=== PATIENT | male | born 1960 | race Caucasian/White ===

== ENCOUNTER 2021-09-04 05:51 | Observation (INO) | payer BC ==
[2021-08-31 11:55] LABS: BASOPHILS % (AUTO) 0.7 % (0.0-5.0); EOSINOPHILS % (AUTO) 4.6 % (0.0-8.0); HEMATOCRIT 37.5 % (42-54); LYMPHOCYTES % (AUTO) 21.8 % (21.0-51.0); MEAN CORPUSCULAR HEMOGLOBIN 22.1 pg (27.0-33.0); MEAN CORPUSCULAR HGB CONC 28.8 g/dL (32.0-36.0); MEAN CORPUSCULAR VOLUME 76.8 fL (79-99); MONOCYTES % (AUTO) 7.2 % (3.0-13.0); NEUTROPHILS % (AUTO) 65.4 % (40.0-77.0); PLATELET COUNT (AUTO) 323 K/uL (130-400); RED BLOOD CELL COUNT(AUTO) 4.88 MIL/uL (4.50-6.20); RED CELL DISTRIBUTION WIDTH 16.1 % (11.0-15.5); WHITE BLOOD COUNT (AUTO) 7.1 K/uL (4.8-10.8)
[2021-08-31 11:55] LABS: APPEARANCE,URINE Clear (CLEAR); BILIRUBIN,URINE Negative (NEGATIVE); COLOR,URINE Yellow (YELLOW); GLUCOSE, URINE (UA) >=1000 mg/dL (NEGATIVE); KETONES,URINE Negative (NEGATIVE); LEUKOCYTE ESTERASE ,URINE Negative (NEGATIVE); NITRATE,URINE Negative (NEGATIVE); OCCULT BLOOD,URINE Negative (NEGATIVE); PROTEIN,URINE Negative (NEGATIVE); UROBILINOGEN,URINE 0.2 mg/dL (0.2-1.0)
[2021-08-31 11:59] LABS: CREATININE 1.1 mg/dL (0.5-1.5); POTASSIUM 4.5 mmol/L (3.5-5.1)
[2021-08-31 12:04] LABS: BACTERIA,URINE None Seen /HPF (None Seen); RBC,URINE None Seen /HPF (0-1); SQUAMOUS EPITHELIAL CELL,UR None Seen /HPF (0-2); WBC,URINE 0-1 /HPF (0-1)
[2021-08-31 12:08] LABS: INR 1.05 (0.85-1.15); PROTHROMBIN TIME 11.4 SEC (9.6-11.6)
[2021-08-31 12:09] LABS: PARTIAL THROMBOPLASTIN TIME 26.2 SEC (26.3-35.5)
[2021-09-01 08:57] VITALS: BP 115/68
[~2021-09-04] VITALS: Ht 172.7 cm; Wt 84.3 kg
[~2021-09-04 05:51] MED LIST: AEC81 PO; DULO60CA64 PO; EMPA25TA PO; METF-445 PO; METO-408 PO; OLME40TA18 PO; ROSU20TA31 PO; [UNRECOGNIZED DRUG - OTHER] PO; [UNRECOGNIZED DRUG - OTHER] SQ
[2021-09-04] MEDS ORDERED: 0.9%NACL 1000ML 1,000 ML IV ONE (06:16)
[2021-09-04] MEDS ORDERED: NITROGLYCERIN 2 MG VIAL IV ONE (07:15)
[2021-09-04] MEDS ORDERED: IOHEXOL-350 50ML VIAL IV ONE (07:16)
[2021-09-04] MEDS ORDERED: LIDOCAINE HCL 400MG/20ML VIAL ONE (07:16)
[2021-09-04] MEDS ORDERED: HEPARIN 10,000 UNIT/10ML (1,000 UNIT/ML) VIAL ONE (07:33)
[2021-09-04] MEDS ORDERED: NICARDIPINE 25MG INJ IV ONE (07:33)
[2021-09-04] MEDS ORDERED: FENTANYL CITRATE PF 50 MCG/1 ML 2ML VIAL ONE (07:47)
[2021-09-04] MEDS ORDERED: MIDAZOLAM HCL 1 MG/ML 2ML VIAL ONE (07:47)
[2021-09-04] MEDS ORDERED: IOHEXOL 350 MG/ML 100ML INFUS..BTL IV ONE (08:07)
[2021-09-04] MEDS ORDERED: IOHEXOL-350 75 ML VIAL IV ONE (08:10)
[2021-09-04] MEDS ORDERED: AMIODARONE 150MG VIAL ONE (08:36)
[2021-09-04] MEDS ORDERED: DILTIAZEM 25MG INJ IVP ONE (08:40)
[2021-09-04] MEDS ORDERED: PHARMACY COMMUNICATION MISC SCH (09:00)
[2021-09-04] MEDS ORDERED: [UNRECOGNIZED DRUG - OTHER] SQ SCH (09:00)
[2021-09-04] MEDS ORDERED: AMIODARONE 150MG VIAL 150 MG in DEXTROSE 5%-WATER 100 ML IV SCH (09:30)
[2021-09-04] MEDS ORDERED: AMIODARONE 900MG VIAL 360 MG in DEXTROSE 5%-WATER 200 ML IV SCH (09:30)
[2021-09-04] MEDS ORDERED: 0.9%NACL 1000ML 1,000 ML IV SCH (09:30)
[2021-09-04] MEDS ORDERED: AMIODARONE 900MG VIAL 450 MG in DEXTROSE 5%-WATER 250 ML IV SCH (09:30)
[2021-09-04 11:26] VITALS: BP 112/76
[2021-09-04 16:25] VITALS: BP 107/71
[2021-09-04] MEDS: RIVAROXABAN 20 MG TABLET PO SCH (16:29)
[2021-09-04 19:55] VITALS: BP 115/66
[2021-09-04] MEDS: DULOXETINE HCL 30 MG CAP PO SCH (20:10)
[2021-09-04] MEDS ORDERED: ATORVASTATIN 40 MG TABLET PO SCH (21:00)
[2021-09-05 00:06] VITALS: BP 130/57
[2021-09-05 03:54] VITALS: BP 120/76
[2021-09-05 04:10] LABS: HEMATOCRIT 33.5 % (42-54); MEAN CORPUSCULAR HEMOGLOBIN 21.9 pg (27.0-33.0); MEAN CORPUSCULAR VOLUME 75.6 fL (79-99); RED BLOOD CELL COUNT(AUTO) 4.43 MIL/uL (4.50-6.20); RED CELL DISTRIBUTION WIDTH 16.3 % (11.0-15.5); WHITE BLOOD COUNT (AUTO) 7.6 K/uL (4.8-10.8)
[2021-09-05] MEDS ORDERED: AMIO200T68 PO (07:48)
[2021-09-05] MEDS ORDERED: RIVA20TA PO (07:48)
[2021-09-05 08:29] LABS: RETICULOCYTE % (AUTO) 1.19 % (0.42-2.23)
[2021-09-05 08:46] LABS: HEMOGLOBIN A1C 7.1 % (4.0-6.0)
[2021-09-05 08:48] LABS: % IRON SATURATION 4.9 % (30-44)
[2021-09-05 08:57] VITALS: BP 121/79
[2021-09-05] MEDS ORDERED: **HM** JARDIANCE 25MG PO SCH (09:00)
[2021-09-05] MEDS ORDERED: DUTASTERIDE 0.5 MG PO SCH (09:00)
[2021-09-05] MEDS ORDERED: METOPROLOL SUCCINATE 50 MG TAB.SR.24H PO SCH (09:00)
[2021-09-05 09:11] LABS: THYROID STIMULATING HORMONE 2.68 uIU/mL (0.36-3.74)
[2021-09-05] MEDS: DULOXETINE HCL 30 MG CAP PO SCH (09:56)
[2021-09-05] MEDS: RIVAROXABAN 20 MG TABLET PO SCH (09:56)
[2021-09-05 10:59] VITALS: BP 143/84
[2021-09-05] MEDS ORDERED: FLU VACC QS2021-22(6MOS UP)/PF 60 MCG/0.5 ML ML IM SCH (11:30)
[2021-09-05] MEDS ORDERED: FLU VACC QS2021-22(6MOS UP)/PF 60 MCG/0.5 ML ML IM ONE (11:30)
== END 2021-09-05 11:30 | disposition home or self-care (01) ==
LOC: DAH 05:51 → DAHIP 05:52 → 4AH 10:14
PROVIDERS: ADMIT Internal Medicine; ATTEND Internal Medicine
DX: I35.2 Nonrheumatic aortic (valve) stenosis with insufficiency (principal); I48.20 Chronic atrial fibrillation, unspecified; I25.10 Atherosclerotic heart disease of native coronary artery without angina pectoris; I10 Essential (primary) hypertension; M16.11 Unilateral primary osteoarthritis, right hip; E78.5 Hyperlipidemia, unspecified; E11.9 Type 2 diabetes mellitus without complications; Z86.73 Personal history of transient ischemic attack (TIA), and cerebral infarction without residual deficits; Z79.01 Long term (current) use of anticoagulants; Z79.899 Other long term (current) drug therapy; Z96.641 Presence of right artificial hip joint; Z23 Encounter for immunization
CPT/HCPCS: 36415; 71045; 80048; 81001; 82270; 82607; 82728; 82746; 82948; 83036; 83540; 83550; 84443; 85025; 85027; 85045; 85610; 85730; 90471; 93005; 93460; 93567; 96365; 96366; 99156; 99157; A4606; C1769; C1894; G0378; J0282; J1644; J2250; J3010; J3490; J7030; J7060; Q2035; Q9967

== ENCOUNTER → 2021-09-11 | Outpatient (CLI) | payer BC ==
[~2021-09-11] MED LIST changes: -AEC81 PO; +AMIO200T44 PO; +AMIO200T68 PO; +BYDUREON BCISE SQ; +DUTA0.5C37 PO; +FURO20TA6 PO; +METO25 PO; +METO25TA6 PO; +RIVA20TA PO; +WARF4TAB72 PO
== END | disposition home or self-care (01) ==
LOC: SHCH 10:40
PROVIDERS: ATTEND Internal Medicine
DX: I35.2 Nonrheumatic aortic (valve) stenosis with insufficiency (principal)
CPT/HCPCS: 93880

== ENCOUNTER 2021-10-18 16:34 | Inpatient (IN) | payer BC ==
[~2021-10-18] VITALS: Ht 172.7 cm; Wt 83.0 kg
[~2021-10-18 16:34] MED LIST changes: -AMIO200T68 PO; -METO-408 PO; -METO25TA6 PO; -OLME40TA18 PO; -RIVA20TA PO; -[UNRECOGNIZED DRUG - OTHER] PO; -[UNRECOGNIZED DRUG - OTHER] SQ
[2021-10-18] MEDS ORDERED: MORPHINE 4 MG SYG IV ONE (17:30)
[2021-10-18 17:34] LABS: BASOPHILS % (AUTO) 0.6 % (0.0-5.0); EOSINOPHILS % (AUTO) 3.7 % (0.0-8.0); HEMATOCRIT 32.5 % (42-54); LYMPHOCYTES % (AUTO) 7.1 % (21.0-51.0); MEAN CORPUSCULAR HEMOGLOBIN 22.8 pg (27.0-33.0); MEAN CORPUSCULAR HGB CONC 28.9 g/dL (32.0-36.0); MEAN CORPUSCULAR VOLUME 78.9 fL (79-99); MONOCYTES % (AUTO) 5.9 % (3.0-13.0); RED BLOOD CELL COUNT(AUTO) 4.12 MIL/uL (4.50-6.20); RED CELL DISTRIBUTION WIDTH 21.5 % (11.0-15.5)
[2021-10-18 17:39] LABS: PLATELET COUNT (AUTO) 854 K/uL (130-400)
[2021-10-18 17:42] LABS: PARTIAL THROMBOPLASTIN TIME 58.1 SEC (26.3-35.5)
[2021-10-18 17:48] LABS: CREATININE 1.2 mg/dL (0.5-1.5); POTASSIUM 3.8 mmol/L (3.5-5.1)
[2021-10-18 17:49] LABS: PROTHROMBIN TIME 62.9 SEC (9.6-11.6)
[2021-10-18 17:50] LABS: INR 6.88 (0.85-1.15)
[2021-10-18 17:53] LABS: ALBUMIN 3.3 g/dL (3.5-5.0); BILIRUBIN,TOTAL 0.3 mg/dL (0.2-1.0); TOTAL PROTEIN, SERUM 7.3 g/dL (6.0-8.3)
[2021-10-18 18:03] LABS: PLATELET MORPHOLOGY COMMENT INCREASED
[2021-10-18] MEDS ORDERED: IOHEXOL 350 MG/ML 100ML INFUS..BTL IV ONE (18:06)
[2021-10-18 18:58] LABS: APPEARANCE,URINE Clear (CLEAR); BILIRUBIN,URINE Negative (NEGATIVE); COLOR,URINE Yellow (YELLOW); GLUCOSE, URINE (UA) >=1000 mg/dL (NEGATIVE); KETONES,URINE Negative (NEGATIVE); LEUKOCYTE ESTERASE ,URINE Negative (NEGATIVE); NITRATE,URINE Negative (NEGATIVE); OCCULT BLOOD,URINE Negative (NEGATIVE); PROTEIN,URINE Negative (NEGATIVE)
[2021-10-18 19:23] LABS: BACTERIA,URINE Rare /HPF (None Seen); RBC,URINE 0-1 /HPF (0-1); SQUAMOUS EPITHELIAL CELL,UR Rare /HPF (0-2); WBC,URINE 0-1 /HPF (0-1)
[2021-10-18] MEDS ORDERED: ONDANSETRON 4MG INJ IV PRN (20:00)
[2021-10-18] MEDS ORDERED: ACETAMINOPHEN 325 MG TAB PO PRN (20:00)
[2021-10-18] MEDS ORDERED: HYDRALAZINE 20MG/ML VIAL IV PRN (20:00)
[2021-10-18] MEDS ORDERED: GLUCAGON 1MG KIT 1 MG ML IM PRN (20:30)
[2021-10-18] MEDS ORDERED: DEXTROSE 50%-WATER 50 ML DISP.SYRIN IV PRN (20:30)
[2021-10-18] MEDS ORDERED: PHYTONADIONE IVPB ONE (21:00)
[2021-10-18] MEDS: INSULIN HUMULIN R 100 UNIT/ML 3ML SQ SCH (21:00)
[2021-10-18] MEDS ORDERED: [UNRECOGNIZED DRUG - OTHER] IVPB ONE (21:00)
[2021-10-18] MEDS: ZOSYN 3.375GM +NS 50ML IV SCH (21:00)
[2021-10-18] MEDS: MORPHINE 4 MG SYG IV PRN (21:04)
[2021-10-18] MEDS: 0.9%NACL 1000ML 1,000 ML IV SCH (21:15)
[2021-10-18] MEDS: FAMOTIDINE 20MG VIAL IV SCH (21:15)
[2021-10-19 00:48] LABS: INR 3.36 (0.85-1.15); PROTHROMBIN TIME 32.8 SEC (9.6-11.6)
[2021-10-19] MEDS: MORPHINE 2 MG SYG IV PRN ×2 (01:13→02:03)
[2021-10-19 01:24] VITALS: BP 131/80
[2021-10-19 03:47] VITALS: BP 127/76
[2021-10-19 04:30] LABS: BASOPHILS % (AUTO) 0.7 % (0.0-5.0); EOSINOPHILS % (AUTO) 3.5 % (0.0-8.0); LYMPHOCYTES % (AUTO) 8.3 % (21.0-51.0); MEAN CORPUSCULAR HEMOGLOBIN 22.4 pg (27.0-33.0); MEAN CORPUSCULAR HGB CONC 28.6 g/dL (32.0-36.0); MEAN CORPUSCULAR VOLUME 78.4 fL (79-99); MONOCYTES % (AUTO) 6.9 % (3.0-13.0); PLATELET COUNT (AUTO) 688 K/uL (130-400); RED CELL DISTRIBUTION WIDTH 21.2 % (11.0-15.5); WHITE BLOOD COUNT (AUTO) 14.8 K/uL (4.8-10.8)
[2021-10-19 04:39] LABS: INR 1.99 (0.85-1.15); POTASSIUM 3.7 mmol/L (3.5-5.1); PROTHROMBIN TIME 20.4 SEC (9.6-11.6)
[2021-10-19] MEDS: ZOSYN 3.375GM +NS 50ML IV SCH ×3 (05:01→19:44)
[2021-10-19] MEDS: INSULIN HUMULIN R 100 UNIT/ML 3ML SQ SCH ×4 (06:46→20:41)
[2021-10-19 08:00] VITALS: BP 144/78
[2021-10-19] MEDS: 0.9%NACL 1000ML 1,000 ML IV SCH ×2 (08:38→17:39)
[2021-10-19] MEDS: DOCUSATE SODIUM 100 MG CAP PO SCH ×2 (09:00→19:44)
[2021-10-19] MEDS: FAMOTIDINE 20MG VIAL IV SCH ×2 (09:45→19:44)
[2021-10-19] MEDS: MORPHINE 4 MG SYG IV PRN (10:54)
[2021-10-19 12:00] VITALS: BP 140/76
[2021-10-19 12:28] LABS: INR 1.46 (0.85-1.15); PROTHROMBIN TIME 15.4 SEC (9.6-11.6)
[2021-10-19 12:29] LABS: PARTIAL THROMBOPLASTIN TIME 32.8 SEC (26.3-35.5)
[2021-10-19] MEDS: POLYETHYLENE GLYCOL 3350 17 GM POWD.PACK PO SCH (14:57)
[2021-10-19 16:00] VITALS: BP 152/80
[2021-10-19] MEDS ORDERED: HYDROCODONE/ACETAMINOPHEN 7.5/325 MG TAB PO PRN (16:30)
[2021-10-19 19:00] VITALS: BP 123/67
[2021-10-19] MEDS ORDERED: AMIODARONE 200 MG TABLET PO ONE (19:48)
[2021-10-19] MEDS ORDERED: METOPROLOL TARTRATE 25 MG TAB ONE (19:48)
[2021-10-19] MEDS: METOPROLOL TARTRATE 25 MG TAB PO SCH (20:11)
[2021-10-19] MEDS: AMIODARONE 200 MG TABLET PO SCH (20:12)
[2021-10-20] VITALS: BP 125/69
[2021-10-20] MEDS: 0.9%NACL 1000ML 1,000 ML IV SCH ×2 (03:57→13:23)
[2021-10-20 04:00] VITALS: BP 139/80
[2021-10-20] MEDS: ZOSYN 3.375GM +NS 50ML IV SCH (04:08)
[2021-10-20] MEDS: INSULIN HUMULIN R 100 UNIT/ML 3ML SQ SCH ×4 (06:07→20:54)
[2021-10-20 08:00] VITALS: BP 145/77
[2021-10-20] MEDS: AMIODARONE 200 MG TABLET PO SCH ×2 (09:01→21:01)
[2021-10-20] MEDS: METOPROLOL TARTRATE 25 MG TAB PO SCH ×2 (09:01→21:01)
[2021-10-20] MEDS: DOCUSATE SODIUM 100 MG CAP PO SCH ×2 (09:01→21:01)
[2021-10-20] MEDS: FAMOTIDINE 20MG VIAL IV SCH ×2 (09:01→21:01)
[2021-10-20] MEDS: POLYETHYLENE GLYCOL 3350 17 GM POWD.PACK PO SCH (09:02)
[2021-10-20 12:00] VITALS: BP 128/74
[2021-10-20 16:00] VITALS: BP 161/94
[2021-10-20] MEDS ORDERED: WARFARIN SODIUM 2.5 MG TAB PO SCH (16:00)
[2021-10-20 20:00] VITALS: BP 135/83
[2021-10-21] VITALS: BP 126/79
[2021-10-21] MEDS: 0.9%NACL 1000ML 1,000 ML IV SCH (01:55)
[2021-10-21 04:00] VITALS: BP 131/78
[2021-10-21 05:09] LABS: MEAN CORPUSCULAR HEMOGLOBIN 22.7 pg (27.0-33.0); MEAN CORPUSCULAR HGB CONC 29.3 g/dL (32.0-36.0); MEAN CORPUSCULAR VOLUME 77.6 fL (79-99); RED BLOOD CELL COUNT(AUTO) 3.48 MIL/uL (4.50-6.20); WHITE BLOOD COUNT (AUTO) 9.7 K/uL (4.8-10.8)
[2021-10-21 05:19] LABS: INR 1.27 (0.85-1.15); PROTHROMBIN TIME 13.5 SEC (9.6-11.6)
[2021-10-21 05:50] LABS: PLATELET COUNT (AUTO) 735 K/uL (130-400)
[2021-10-21] MEDS: INSULIN HUMULIN R 100 UNIT/ML 3ML SQ SCH ×2 (06:13→11:30)
[2021-10-21 07:05] LABS: EOSINOPHILS % (MANUAL) 1 % (1-6); LYMPHOCYTES % (MANUAL) 15 % (22-44); MAN.DIFF COMMENT-IMPRESSION MANUAL DIFFERENTIAL; MONOCYTES % (MANUAL) 4 % (2-9); SEGMENTED NEUTROPHILS % 80 % (40-70)
[2021-10-21 07:06] LABS: PLATELET MORPHOLOGY COMMENT INCREASED
[2021-10-21 08:00] VITALS: BP 136/78
[2021-10-21] MEDS: FAMOTIDINE 20MG VIAL IV SCH (09:00)
[2021-10-21] MEDS: POLYETHYLENE GLYCOL 3350 17 GM POWD.PACK PO SCH (09:07)
[2021-10-21] MEDS: DOCUSATE SODIUM 100 MG CAP PO SCH (09:07)
[2021-10-21] MEDS: METOPROLOL TARTRATE 25 MG TAB PO SCH (09:07)
[2021-10-21] MEDS: AMIODARONE 200 MG TABLET PO SCH (09:07)
[2021-10-21 12:00] VITALS: BP 133/78
[2021-10-22 08:00] VITALS: BP 158/74
== END 2021-10-21 13:45 | disposition home or self-care (01) | DRG 604 ==
LOC: EDH 16:34 → EDHIP 19:49 → 4DH 22:38
PROVIDERS: ADMIT Hospitalist; ATTEND Hospitalist
DX: S30.1XXA Contusion of abdominal wall, initial encounter (principal); J15.9 Unspecified bacterial pneumonia; I72.4 Aneurysm of artery of lower extremity; R79.1 Abnormal coagulation profile; D72.829 Elevated white blood cell count, unspecified; D75.839 Thrombocytosis, unspecified; E11.9 Type 2 diabetes mellitus without complications; E78.5 Hyperlipidemia, unspecified; I48.91 Unspecified atrial fibrillation; I10 Essential (primary) hypertension; Z20.822 Contact with and (suspected) exposure to COVID-19; M19.90 Unspecified osteoarthritis, unspecified site; I25.10 Atherosclerotic heart disease of native coronary artery without angina pectoris; Z96.641 Presence of right artificial hip joint; E78.00 Pure hypercholesterolemia, unspecified; I72.8 Aneurysm of other specified arteries; N50.89 Other specified disorders of the male genital organs; Y93.89 Activity, other specified; Y92.89 Other specified places as the place of occurrence of the external cause; Y99.8 Other external cause status; Z79.01 Long term (current) use of anticoagulants; Z95.2 Presence of prosthetic heart valve; Z86.73 Personal history of transient ischemic attack (TIA), and cerebral infarction without residual deficits; Z82.41 Family history of sudden cardiac death; Z80.3 Family history of malignant neoplasm of breast; Z82.49 Family history of ischemic heart disease and other diseases of the circulatory system
CPT/HCPCS: 36415; 71045; 72191; 76882; 80048; 80053; 81001; 82948; 83605; 85025; 85610; 85730; 86850; 86900; 86901; 87040; 87635; 93005; G0378; J2270; J2543; J3430; J3490; J7030; Q9967

== ENCOUNTER 2024-04-10 12:10 | Day surgery (SDC) | payer MEDICARE ==
[2024-04-08 10:55] LABS: BASOPHILS # (AUTO) 0.07 K/uL (0.00-0.20); EOSINOPHILS # (AUTO) 0.28 K/uL (0.00-0.70); HEMATOCRIT 41.1 % (42-54); IMMATURE GRANULOCYTE ABSOLUTE 0.03 K/uL (0-1); LYMPHOCYTES # (AUTO) 1.3 K/uL (1.0-4.8); LYMPHOCYTES % (AUTO) 18.4 % (21.0-51.0); MEAN CORPUSCULAR HGB CONC 29.2 g/dL (32.0-36.0); MEAN CORPUSCULAR VOLUME 82.2 fL (79-99); MONOCYTES # (AUTO) 0.5 K/uL (0.1-1.0); MONOCYTES % (AUTO) 6.6 % (3.0-13.0); NEUTROPHILS # (AUTO) 4.9 K/uL (1.8-7.7); NEUTROPHILS % (AUTO) 69.6 % (40.0-77.0); PLATELET COUNT (AUTO) 345 K/uL (130-400); RED CELL DISTRIBUTION WIDTH 14.7 % (11.0-15.5)
[2024-04-08 11:10] LABS: INR 2.67 (0.85-1.15); PROTHROMBIN TIME 29.3 SEC (9.6-11.6)
[2024-04-08 11:11] LABS: PARTIAL THROMBOPLASTIN TIME 39.9 SEC (26.3-35.5)
[2024-04-08 11:24] LABS: CREATININE 1.4 mg/dL (0.5-1.3); POTASSIUM 5.1 mmol/L (3.5-5.1)
[2024-04-08 11:39] VITALS: BP 103/61; PULSE 74; RESP 18
[2024-04-10] VITALS (19 sets, daily range): BP systolic 100–124; BP diastolic 68–78; PULSE 61–71; RESP 11–19
[~2024-04-10] VITALS: Ht 172.7 cm; Wt 76.5 kg
[~2024-04-10 12:10] MED LIST changes: -AMIO200T44 PO; -BYDUREON BCISE SQ; +DRON400T7 PO; -DULO60CA64 PO; -FURO20TA6 PO; +LATA2.5D14 OP; -METF-445 PO; -METO25 PO; -ROSU20TA31 PO; +ROSU20TA73 PO; +SERT-440 PO; +VERA180T61 PO; +WARF-57 PO; -WARF4TAB72 PO
[2024-04-10] MEDS ORDERED: MIDAZOLAM HCL 1 MG/ML 2ML VIAL IVP ONE (13:30)
[2024-04-10] MEDS: 0.9%NACL 1000ML 1,000 ML IV ONE (13:46)
[2024-04-10] MEDS ORDERED: NALOXONE HCL 0.4 MG/1 ML ML ONE (13:55)
[2024-04-10] MEDS ORDERED: FLUMAZENIL 0.1MG/1ML 5ML VIAL IV ONE (13:55)
[2024-04-10] MEDS: LIDOCAINE HCL 2% VISCOUS 15 ML UDCUP PO ONE (14:28)
[2024-04-10] MEDS: FENTANYL CITRATE PF 50 MCG/1 ML 2ML VIAL IVP ONE (16:47)
[2024-04-10] MEDS: MIDAZOLAM HCL 1 MG/ML 2ML VIAL IVP ONE (16:47)
== END 2024-04-10 16:40 | disposition home or self-care (01) ==
LOC: DAH 12:10
PROVIDERS: ATTEND Internal Medicine
DX: I08.8 Other rheumatic multiple valve diseases (principal); I25.10 Atherosclerotic heart disease of native coronary artery without angina pectoris; I48.0 Paroxysmal atrial fibrillation; G20.A1 Parkinson's disease without dyskinesia, without mention of fluctuations; H40.9 Unspecified glaucoma; Z80.3 Family history of malignant neoplasm of breast; Z79.01 Long term (current) use of anticoagulants; Z82.49 Family history of ischemic heart disease and other diseases of the circulatory system; Z95.2 Presence of prosthetic heart valve; Z98.890 Other specified postprocedural states
CPT/HCPCS: 80048; 85025; 85610; 85730; 36415; 93005; 93312; 82948; 93325; J3010; J7030; J2250; A4215; A4222; A4221; A4663; A4216 ×2; A4606; A4223 ×3; J2310; J3490

== ENCOUNTER → 2024-10-13 | Outpatient (CLI) | payer MEDICARE ==
[~2024-10-13] MED LIST changes: -ROSU20TA73 PO; +ROSU20TA98 PO
[2024-10-13] MEDS: REGADENOSON 0.4 MG/5 ML PF SYG IVP ONE (10:17)
== END | disposition home or self-care (01) ==
LOC: SHCH 08:13
PROVIDERS: ATTEND Internal Medicine
DX: I35.0 Nonrheumatic aortic (valve) stenosis (principal); Z79.899 Other long term (current) drug therapy
CPT/HCPCS: 78452; 93017; J2785; A9500 ×2